=== PATIENT | male | born 1970 | race Caucasian/White ===

== ENCOUNTER 2022-04-12 14:08 | Inpatient (IN) ==
[2022-04-12] MEDS ORDERED: SIMETHICONE CHEW 125 MG TABLET PO PRN (14:19)
[2022-04-12] MEDS ORDERED: PROMETHAZINE 25 MG/1 ML VIAL IM PRN (14:19)
[2022-04-12] MEDS ORDERED: oxyCODONE/ACETAMINOPHEN 5-325 MG TABLET PO PRN (14:19)
[2022-04-12] MEDS ORDERED: ONDANSETRON 4 MG/2 ML VIAL IV PRN (14:19)
[2022-04-12 16:15] LABS: Basophils # 0.1 10*3/uL (0.0-0.2); Basophils % 0.4 % (0.0-0.8); Eosinophils # 0.3 10*3/uL (0.0-0.87); Eosinophils % 1.8 % (0.00-10.9); Hematocrit 38.7 VOL% (42.0-52.0); Hemoglobin 12.9 GM/DL (14.0-18.0); Immature Granulocytes % 2.7 %; Immature Granulocytes Absolute 0.42 #; Lymphocytes # 2.7 10*3/uL (1.4-4.0); Lymphocytes % 17.2 % (21.2-54.2); Mean Corpuscular HGB Conc 33.3 GM/DL (32-36); Mean Corpuscular Volume 89.8 FL (87-102); Mean Platelet Volume 9.9 FL (9.6-12.0); Monocytes # 1.2 10*3/uL (0.11-0.8); Monocytes % 7.5 % (1.7-12.7); Neutrophils % 70.4 % (38.7-73.9); Platelet Count 370 T/CUMM (130-400); Red Blood Count 4.31 MC/CUMM (3.8-5.5); Red Cell Distribution Width 12.2 % (9.3-17.3); White Blood Count 15.8 T/CUMM (4-12)
[2022-04-12 16:31] LABS: Calcium 9.4 MG/DL (8.5-10.1); Osmolality,Calculated 275.5 MOS/KG (273-304); Potassium 3.4 MMOL/L (3.5-5.1)
[2022-04-12] MEDS: ACETAMINOPHEN 325 MG TABLET PO SCH ×2 (16:38→20:46)
[2022-04-12] MEDS: SODIUM CHLORIDE 0.9% 1,000 ML IV SCH (16:46)
[2022-04-12] MEDS ORDERED: cefTRIAXone 1,000 MG in SODIUM CHLORIDE 0.9% 100 ML IV SCH (17:00)
[2022-04-12] MEDS ORDERED: POTASSIUM CHLORIDE 20 MEQ TABLET PO ONE (17:22)
[2022-04-12] MEDS ORDERED: MAGNESIUM SULF RIDER 4 GM/100 ML PREMIX IV PRN (17:23)
[2022-04-12] MEDS ORDERED: MAGNESIUM SULF RIDER 2 GM/50 ML PREMIX IV PRN (17:23)
[2022-04-12 17:25] LABS: Alanine Aminotransferase 24 U/L (16-61); Albumin 2.7 G/DL (3.4-5.0); Alkaline Phosphatase 118 U/L (45-117); Aspartate Amino Transferase 21 U/L (0-37); Bilirubin,Direct < 0.100 MG/DL (0.0-0.20); Bilirubin,Indirect 0.3 MG/DL (0.0-1.0); Bilirubin,Total < 0.39 MG/DL (0.20-1.00); Total Protein 7.3 G/DL (6.4-8.2)
[2022-04-12] MEDS: POTASSIUM CHLORIDE RIDER 10 MEQ/100 ML PREMIX IV SCH ×2 (17:47→20:47)
[2022-04-12] MEDS: KETOROLAC 15 MG/1 ML VIAL IV SCH ×2 (17:48→23:15)
[2022-04-12 19:08] LABS: Bilirubin,Urine Negative (Negative); Glucose,Urine (UA) Negative (Negative); Ketones,Urine Negative (Negative); Nitrite,Urine Negative (Negative); Protein,Urine 30 mg/dL (Negative); Urine Appearance Clear (Clear); Urine Color Yellow (Yellow); Urine Specific Gravity >= 1.030 (1.001-1.035); Urine pH 6.5 (4.5-8.0)
[2022-04-12 19:09] LABS: Blood, Urine Trace mg/dL (Negative); Urine Urobilinogen 0.2 eU/dL (<2.0)
[2022-04-12 19:12] LABS: Mucus,Urine Many /LPF (Occasional); RBC,Urine 8 /HPF (0-4); Squamous Epithelial Cell,Urine Occasional /HPF (0-10)
[2022-04-12] MEDS: DOCUSATE SODIUM 100 MG CAPSULE PO SCH (20:46)
[2022-04-13] MEDS: SODIUM CHLORIDE 0.9% 1,000 ML IV SCH (02:00)
[2022-04-13 06:00] LABS: Basophils # 0.1 10*3/uL (0.0-0.2); Basophils % 0.4 % (0.0-0.8); Eosinophils # 0.3 10*3/uL (0.0-0.87); Eosinophils % 2.5 % (0.00-10.9); Hematocrit 40.2 VOL% (42.0-52.0); Hemoglobin 13.1 GM/DL (14.0-18.0); Immature Granulocytes % 2.4 %; Immature Granulocytes Absolute 0.31 #; Lymphocytes # 2.4 10*3/uL (1.4-4.0); Lymphocytes % 18.3 % (21.2-54.2); Mean Corpuscular HGB Conc 32.6 GM/DL (32-36); Mean Corpuscular Volume 89.7 FL (87-102); Mean Platelet Volume 10.2 FL (9.6-12.0); Monocytes # 0.9 10*3/uL (0.11-0.8); Monocytes % 6.7 % (1.7-12.7); Neutrophils % 69.7 % (38.7-73.9); Platelet Count 393 T/CUMM (130-400); Red Blood Count 4.48 MC/CUMM (3.8-5.5); Red Cell Distribution Width 12.5 % (9.3-17.3)
[2022-04-13] MEDS: KETOROLAC 15 MG/1 ML VIAL IV SCH ×4 (06:08→23:24)
[2022-04-13 06:11] LABS: Calcium 8.8 MG/DL (8.5-10.1); Osmolality,Calculated 273.7 MOS/KG (273-304); Potassium 3.1 MMOL/L (3.5-5.1)
[2022-04-13] MEDS ORDERED: propofoL 200 MG/20 ML VIAL IV ONE (06:36)
[2022-04-13] MEDS ORDERED: LIDOCAINE 2% 5 ML VIAL ONE (06:36)
[2022-04-13] MEDS ORDERED: BACITRACIN OINT 0.9 GM PACK TOP ONE (06:37)
[2022-04-13] MEDS ORDERED: ROPIVACAINE 0.5% 30 ML VIAL ONE (06:37)
[2022-04-13] MEDS: ACETAMINOPHEN 325 MG TABLET PO SCH ×4 (07:48→20:51)
[2022-04-13] MEDS: LACTATED RINGERS 1,000 ML IV SCH ×2 (08:15→08:31)
[2022-04-13] MEDS ORDERED: DEXMEDETOMIDINE 200 MCG/2 ML VIAL ONE (08:30)
[2022-04-13] MEDS ORDERED: KETAMINE 500 MG/10 ML VIAL ONE (08:30)
[2022-04-13] MEDS ORDERED: HYDROmorphone 1 MG/1 ML SYRINGE ONE (08:43)
[2022-04-13] MEDS ORDERED: ONDANSETRON 4 MG/2 ML VIAL ONE (08:50)
[2022-04-13] MEDS ORDERED: SEVOFLURANE 1 UNIT/15 MINUTE INH ONE (08:50)
[2022-04-13] MEDS ORDERED: ONDANSETRON 4 MG/2 ML VIAL IV PRN (09:15)
[2022-04-13] MEDS ORDERED: HYDROmorphone 1 MG/1 ML SYRINGE IV PRN (09:15)
[2022-04-13] MEDS ORDERED: MEROPENEM 2,000 MG in SODIUM CHLORIDE 0.9% 100 ML IV SCH (09:30)
[2022-04-13 09:52] LABS: RBC,Urine 1 /HPF (0-4); Urine Appearance Clear (Clear); Urine Color Light Yellow (Yellow); Urine Specific Gravity 1.015 (1.001-1.035)
[2022-04-13 09:53] LABS: Bilirubin,Urine Negative (Negative); Blood, Urine Trace mg/dL (Negative); Glucose,Urine (UA) Negative (Negative); Ketones,Urine Negative (Negative); Nitrite,Urine Negative (Negative); Protein,Urine Negative (Negative); Urine Urobilinogen 0.2 eU/dL (<2.0)
[2022-04-13] MEDS: DOCUSATE SODIUM 100 MG CAPSULE PO SCH ×2 (10:20→20:50)
[2022-04-13] MEDS: DEXT 5% NACL 0.45% KCL 20 MEQ 20 MEQ/1,000 ML BAG IV SCH ×2 (10:49→20:59)
[2022-04-13] MEDS: POTASSIUM CHLORIDE 20 MEQ TABLET PO SCH (10:49)
[2022-04-13] MEDS: MEROPENEM 500 MG in SODIUM CHLORIDE 0.9% 100 ML IV SCH ×3 (11:31→21:59)
[2022-04-13] MEDS: HYDROmorphone 1 MG/1 ML SYRINGE IV PRN (21:58)
[2022-04-14] MEDS: ACETAMINOPHEN 325 MG TABLET PO SCH ×4 (02:50→20:20)
[2022-04-14] MEDS: MEROPENEM 500 MG in SODIUM CHLORIDE 0.9% 100 ML IV SCH ×4 (04:35→22:01)
[2022-04-14 05:17] LABS: Basophils # 0.1 10*3/uL (0.0-0.2); Basophils % 0.5 % (0.0-0.8); Eosinophils # 0.4 10*3/uL (0.0-0.87); Eosinophils % 3.4 % (0.00-10.9); Hematocrit 36.3 VOL% (42.0-52.0); Hemoglobin 11.6 GM/DL (14.0-18.0); Immature Granulocytes % 1.2 %; Immature Granulocytes Absolute 0.13 #; Lymphocytes % 18.8 % (21.2-54.2); Mean Corpuscular Volume 91.7 FL (87-102); Monocytes # 0.7 10*3/uL (0.11-0.8); Monocytes % 6.6 % (1.7-12.7); Neutrophils % 69.5 % (38.7-73.9); Platelet Count 326 T/CUMM (130-400); Red Blood Count 3.96 MC/CUMM (3.8-5.5); Red Cell Distribution Width 12.7 % (9.3-17.3); White Blood Count 10.6 T/CUMM (4-12)
[2022-04-14 05:40] LABS: Calcium 8.2 MG/DL (8.5-10.1); Osmolality,Calculated 278.3 MOS/KG (273-304)
[2022-04-14] MEDS: DEXT 5% NACL 0.45% KCL 20 MEQ 20 MEQ/1,000 ML BAG IV SCH ×3 (05:48→14:29)
[2022-04-14] MEDS: KETOROLAC 15 MG/1 ML VIAL IV SCH ×4 (06:55→23:25)
[2022-04-14] MEDS: POTASSIUM CHLORIDE 20 MEQ TABLET PO SCH (08:53)
[2022-04-14] MEDS: DOCUSATE SODIUM 100 MG CAPSULE PO SCH ×2 (08:55→20:20)
[2022-04-14] MEDS: diphenhydrAMINE 50 MG/1 ML VIAL IV PRN (23:32)
[2022-04-15] MEDS: ACETAMINOPHEN 325 MG TABLET PO SCH ×4 (02:52→21:09)
[2022-04-15] MEDS: DEXT 5% NACL 0.45% KCL 20 MEQ 20 MEQ/1,000 ML BAG IV SCH ×2 (02:53→10:05)
[2022-04-15 04:30] LABS: Basophils # 0.1 10*3/uL (0.0-0.2); Basophils % 0.6 % (0.0-0.8); Eosinophils # 0.4 10*3/uL (0.0-0.87); Eosinophils % 4.2 % (0.00-10.9); Hemoglobin 13.3 GM/DL (14.0-18.0); Immature Granulocytes % 1.7 %; Immature Granulocytes Absolute 0.16 #; Mean Corpuscular HGB Conc 32.4 GM/DL (32-36); Mean Corpuscular Volume 90.9 FL (87-102); Monocytes # 0.6 10*3/uL (0.11-0.8); Monocytes % 6.6 % (1.7-12.7); Neutrophils % 65.9 % (38.7-73.9); Platelet Count 398 T/CUMM (130-400); Red Blood Count 4.51 MC/CUMM (3.8-5.5); Red Cell Distribution Width 12.6 % (9.3-17.3); White Blood Count 9.7 T/CUMM (4-12)
[2022-04-15 04:50] LABS: Calcium 8.6 MG/DL (8.5-10.1); Osmolality,Calculated 279.1 MOS/KG (273-304); Potassium 4.1 MMOL/L (3.5-5.1)
[2022-04-15] MEDS: MEROPENEM 500 MG in SODIUM CHLORIDE 0.9% 100 ML IV SCH ×4 (04:57→21:10)
[2022-04-15] MEDS: KETOROLAC 15 MG/1 ML VIAL IV SCH ×4 (06:53→23:07)
[2022-04-15] MEDS: DOCUSATE SODIUM 100 MG CAPSULE PO SCH ×2 (08:16→21:09)
[2022-04-15] MEDS: POTASSIUM CHLORIDE 20 MEQ TABLET PO SCH (08:16)
[2022-04-16] MEDS: ACETAMINOPHEN 325 MG TABLET PO SCH ×4 (03:29→21:35)
[2022-04-16] MEDS: MEROPENEM 500 MG in SODIUM CHLORIDE 0.9% 100 ML IV SCH ×4 (03:30→21:35)
[2022-04-16 05:41] LABS: Calcium 9.5 MG/DL (8.5-10.1); Osmolality,Calculated 273.5 MOS/KG (273-304); Potassium 4.6 MMOL/L (3.5-5.1)
[2022-04-16] MEDS: KETOROLAC 15 MG/1 ML VIAL IV SCH ×4 (06:07→23:37)
[2022-04-16] MEDS: DOCUSATE SODIUM 100 MG CAPSULE PO SCH ×2 (09:30→21:34)
[2022-04-16] MEDS: POTASSIUM CHLORIDE 20 MEQ TABLET PO SCH (09:31)
[2022-04-17] MEDS: diphenhydrAMINE 50 MG/1 ML VIAL IV PRN (01:12)
[2022-04-17] MEDS: ACETAMINOPHEN 325 MG TABLET PO SCH ×4 (03:31→20:56)
[2022-04-17] MEDS: MEROPENEM 500 MG in SODIUM CHLORIDE 0.9% 100 ML IV SCH ×5 (03:37→21:02)
[2022-04-17 05:59] LABS: Calcium 9.5 MG/DL (8.5-10.1); Osmolality,Calculated 277.4 MOS/KG (273-304); Potassium 4.6 MMOL/L (3.5-5.1)
[2022-04-17] MEDS: KETOROLAC 15 MG/1 ML VIAL IV SCH ×2 (06:00→12:25)
[2022-04-17] MEDS: SODIUM CHLORIDE 0.9% 1,000 ML IV SCH ×2 (08:37→20:56)
[2022-04-17] MEDS: DOCUSATE SODIUM 100 MG CAPSULE PO SCH ×2 (08:38→20:55)
[2022-04-17] MEDS: POTASSIUM CHLORIDE 20 MEQ TABLET PO SCH (08:38)
[2022-04-17] MEDS ORDERED: LIDOCAINE 2% 5 ML VIAL ONE (15:14)
[2022-04-17] MEDS ORDERED: propofoL 200 MG/20 ML VIAL IV ONE (15:14)
[2022-04-17] MEDS ORDERED: fentaNYL 100 MCG/2 ML VIAL ONE (15:33)
[2022-04-17] MEDS ORDERED: MIDAZOLAM 2 MG/2 ML VIAL ONE (15:34)
[2022-04-17] MEDS ORDERED: SODIUM CHLORIDE 0.9% 1,000 ML IV ONE (16:28)
[2022-04-17] MEDS ORDERED: ONDANSETRON 4 MG/2 ML VIAL ONE (16:29)
[2022-04-17] MEDS ORDERED: SEVOFLURANE 1 UNIT/15 MINUTE INH ONE (16:29)
[2022-04-17] MEDS ORDERED: ROPIVACAINE 0.5% 30 ML VIAL ONE (16:38)
[2022-04-17] MEDS ORDERED: MEPERIDINE 25 MG/1 ML VIAL ONE (17:30)
[2022-04-17] MEDS ORDERED: PROMETHAZINE INJ 25 MG in SODIUM CHLORIDE 0.9% 50 ML IV PRN (17:31)
[2022-04-17] MEDS ORDERED: MEPERIDINE 25 MG/1 ML VIAL IV PRN (17:31)
[2022-04-17] MEDS ORDERED: ONDANSETRON 4 MG/2 ML VIAL IV PRN (17:31)
[2022-04-17] MEDS ORDERED: diphenhydrAMINE 50 MG/1 ML VIAL IV PRN (17:31)
[2022-04-17] MEDS ORDERED: HYDROmorphone 1 MG/1 ML SYRINGE IV PRN (17:31)
[2022-04-17] MEDS: HYDROmorphone 1 MG/1 ML SYRINGE IV PRN (18:14)
[2022-04-18] MEDS: HYDROmorphone 1 MG/1 ML SYRINGE IV PRN ×4 (01:03→21:12)
[2022-04-18] MEDS: ACETAMINOPHEN 325 MG TABLET PO SCH ×4 (02:52→21:08)
[2022-04-18] MEDS: MEROPENEM 500 MG in SODIUM CHLORIDE 0.9% 100 ML IV SCH ×4 (03:15→22:36)
[2022-04-18] MEDS: POTASSIUM CHLORIDE 20 MEQ TABLET PO SCH (08:17)
[2022-04-18] MEDS: DOCUSATE SODIUM 100 MG CAPSULE PO SCH ×2 (08:17→21:09)
[2022-04-18] MEDS: SODIUM CHLORIDE 0.9% 1,000 ML IV SCH ×2 (10:00→22:39)
[2022-04-19] MEDS: diphenhydrAMINE 50 MG/1 ML VIAL IV PRN (01:59)
[2022-04-19] MEDS: ACETAMINOPHEN 325 MG TABLET PO SCH ×2 (02:04→09:22)
[2022-04-19] MEDS: MEROPENEM 500 MG in SODIUM CHLORIDE 0.9% 100 ML IV SCH ×2 (04:38→09:22)
[2022-04-19 05:10] LABS: Basophils # 0.1 10*3/uL (0.0-0.2); Basophils % 0.8 % (0.0-0.8); Eosinophils # 0.3 10*3/uL (0.0-0.87); Hematocrit 37.2 VOL% (42.0-52.0); Hemoglobin 11.8 GM/DL (14.0-18.0); Immature Granulocytes % 0.4 %; Immature Granulocytes Absolute 0.03 #; Lymphocytes # 1.7 10*3/uL (1.4-4.0); Lymphocytes % 21.4 % (21.2-54.2); Mean Corpuscular HGB Conc 31.7 GM/DL (32-36); Mean Corpuscular Volume 93.7 FL (87-102); Monocytes # 0.7 10*3/uL (0.11-0.8); Monocytes % 8.8 % (1.7-12.7); Neutrophils % 64.6 % (38.7-73.9); Platelet Count 385 T/CUMM (130-400); Red Blood Count 3.97 MC/CUMM (3.8-5.5); Red Cell Distribution Width 13.1 % (9.3-17.3); White Blood Count 7.9 T/CUMM (4-12)
[2022-04-19 05:28] LABS: Calcium 9.4 MG/DL (8.5-10.1); Osmolality,Calculated 277.3 MOS/KG (273-304); Potassium 4.1 MMOL/L (3.5-5.1)
[2022-04-19 07:26] VITALS: BP 147/86
[2022-04-19] MEDS: DOCUSATE SODIUM 100 MG CAPSULE PO SCH (09:22)
[2022-04-19] MEDS: POTASSIUM CHLORIDE 20 MEQ TABLET PO SCH (09:22)
[2022-04-19] MEDS: HYDROmorphone 1 MG/1 ML SYRINGE IV PRN (09:24)
== END 2022-04-19 11:28 | disposition home or self-care (01) | DRG 711 ==
LOC: N.3E 14:37
PROVIDERS: ADMIT Surgery; ATTEND Surgery